=== PATIENT | male | born 1965 | race Asian ===

== ENCOUNTER 2018-03-20 19:26 | Emergency (ER) | payer SELFPAY ==
[~2018-03-20] VITALS: Ht 172.7 cm; Wt 72.7 kg
[2018-03-20] MEDS ORDERED: KETOROLAC TROMETHAMINE 60 MG/2 ML VIAL IM ONE (21:30)
[2018-03-20 22:38] VITALS: BP 146/91
== END 2018-03-20 22:56 | disposition home or self-care (01) ==
LOC: EMS 19:27
DX: K02.9 Dental caries, unspecified (principal); F17.210 Nicotine dependence, cigarettes, uncomplicated
CPT/HCPCS: 96372; 99283; J1885